=== PATIENT | male | born 1960 | race Caucasian/White ===

== ENCOUNTER 2016-07-25 16:46 | Emergency (ER) | payer OTHER | END 2016-07-25 17:22 | disposition home or self-care (01) | LOC: CFTX 16:46 | DX: L72.3 Sebaceous cyst (principal); F17.210 Nicotine dependence, cigarettes, uncomplicated | CPT/HCPCS: 99283 ==

== ENCOUNTER 2016-07-28 19:30 | Emergency (ER) | payer OTHER | END 2016-07-28 19:37 | disposition home or self-care (01) | LOC: CFTX 19:30 | DX: Z48.00 Encounter for change or removal of nonsurgical wound dressing (principal); L02.212 Cutaneous abscess of back [any part, except buttock and flank] | CPT/HCPCS: 99281 ==